=== PATIENT | female | born 1980 | race Caucasian/White ===

== ENCOUNTER 2021-01-29 12:32 | Outpatient (CLI) | payer OTHER | END 2021-01-29 12:33 | disposition home or self-care (01) | LOC: BICMAMMO 12:32 | PROVIDERS: ATTEND Physician Assistant | DX: R22.31 Localized swelling, mass and lump, right upper limb (principal) | CPT/HCPCS: 76999; 77063; 77067 ==

== ENCOUNTER 2021-06-12 14:08 | Outpatient (CLI) | payer OTHER | END 2021-06-12 14:09 | disposition home or self-care (01) | LOC: BICULT 14:08 | PROVIDERS: ATTEND Family Medicine | DX: R22.31 Localized swelling, mass and lump, right upper limb (principal) | CPT/HCPCS: 76999 ==

== ENCOUNTER 2023-07-20 13:32 | Outpatient (CLI) | payer OTHER | END 2023-07-20 13:33 | disposition home or self-care (01) | LOC: BICMAMMO 13:32 | PROVIDERS: ATTEND Obstetrics & Gynecology | DX: N60.01 Solitary cyst of right breast (principal) | CPT/HCPCS: 77066; G0279 ==